=== PATIENT | female | born 1975 | race Caucasian/White ===

== ENCOUNTER 2020-02-16 09:46 | Outpatient (CLI) | payer BC, SELFPAY ==
--- NOTE | 2020-02-16 09:53 | MM_ITS ---
WS: [id number] BILATERAL DIGITAL SCREENING MAMMOGRAPHY WITH CAD CLINICAL INFORMATION: SCREENING HISTORY: Screening mammogram. No current complaints. COMPARISON: None. TECHNIQUE: Bilateral CC and MLO views. FINDINGS: Bilateral breast implants. The breasts are composed of heterogeneous fibroglandular density tissue, which can limit the detectio n of small underlying mass lesions. No suspicious mass, asymmetry, calcifications, or architectural d istortion. No evidence of malignancy. MM/[place] [id number] IMPRESSION: BI-RADS: 2-Benign FOLLOW UP: 1 Year Follow-up Recommend return to annual screening mammography.
== END 2020-02-16 09:47 | disposition home or self-care (01) ==
PROVIDERS: PCP Registered Nurse; Visit Provider Registered Nurse
DX: Z12.31 Encounter for screening mammogram for malignant neoplasm of breast (principal)
CPT/HCPCS: 77067

== ENCOUNTER 2021-03-02 11:47 | Outpatient (CLI) | payer BC, SELFPAY ==
--- NOTE | 2021-03-02 13:00 | MM_ITS ---
WS: [id number] BILATERAL SCREENING MAMMOGRAM WITH KYLIE DISPLACEMENT VIEWS. CAD PERFORMED. HISTORY: Z12.31 - Encounter for screening mammogram for malignant ... COMPARISON: 02/16/2020 Bilateral craniocaudal and mediolateral like views are performed. Kylie displacement views in CC and MLO projection also performed. Breasts composition: The breasts are extremely dense, which lowers the sensitivity of mammography. I mplants are intact. No suspicious mass or calcifications. No nipple retraction. MM/[place] [id number] IMPRESSION: BI-RADS: 2-Benign FOLLOW-UP: 1 Year Follow-up
== END 2021-03-02 11:48 | disposition home or self-care (01) ==
PROVIDERS: PCP Registered Nurse; Visit Provider Registered Nurse
DX: Z12.31 Encounter for screening mammogram for malignant neoplasm of breast (principal); Z98.82 Breast implant status
CPT/HCPCS: 77067

== ENCOUNTER → 2022-04-17 16:22 | Outpatient (BNVA) | payer BC, SELFPAY | PROVIDERS: PCP Registered Nurse; Visit Provider Registered Nurse | DX: Z01.419 Encounter for gynecological examination (general) (routine) without abnormal findings (principal) | CPT/HCPCS: 87624 ==

== ENCOUNTER → 2023-06-22 08:19 | Outpatient (BNVA) | payer BC, SELFPAY | PROVIDERS: PCP Registered Nurse; Referring Provider Dermatology; Visit Provider Nurse Practitioner | DX: M25.522 Pain in left elbow; G89.29 Other chronic pain; M70.22 Olecranon bursitis, left elbow | CPT/HCPCS: 73080 ==

== ENCOUNTER → 2023-07-16 09:11 | Outpatient (BNVA) | payer BC, SELFPAY | PROVIDERS: PCP Registered Nurse; Visit Provider Registered Nurse | DX: Z13.6 Encounter for screening for cardiovascular disorders (principal); E53.8 Deficiency of other specified B group vitamins; E55.9 Vitamin D deficiency, unspecified | CPT/HCPCS: 80053; 80061; 82306; 82607; 85025 ==

== ENCOUNTER 2023-07-20 13:29 | Outpatient (CLI) | payer BC, SELFPAY ==
--- NOTE | 2023-07-20 13:45 | MR_ITS ---
WS: [id number] EXAMINATION: MR elbow LT wo con* [id number] ORDER DATE: 07/20/2023 1:30 PM COMPARISON: None. HISTORY: Left medial elbow pain. CONTRAST: None.None. TECHNIQUE: Axial T1, axial T2 fat sat, coronal T1, coronal proton density fat sat, coronal STIR, sagi ttal proton density fat sat, and axial fat sat 3D performed. After contrast, axial T1 fat sat, coron al T1 fat sat, and sagittal T1 fat sat were performed. FINDINGS: Normal anatomic alignment. No acute fractures. Normal bone marrow signal. Radial head and neck are no rmal in appearance. No acute radial head fractures. Normal capitellum and trochlea. Distal humerus is normal in appearance. Normal epicondyles. Coronoid process is normal in appearance. Trace joint effu simona. Trace fluid and edema along the dorsal olecranon at the triceps insertion. Partially visualized distal biceps tendon inserts normally on the radial tuberosity. Common flexor tendon is normal in appearance. Small amount of fluid and edema along the medial collat eral ligament which appears intact. Common extensor tendon is normal in appearance. Normal lateral collateral and annular ligament. IMPRESSION: 1. Normal bone marrow signal. No acute fractures. 2. Radial head and neck are normal in appearance. Normal coronoid process. 3. Tiny joint effusion. 4. Small amount of fluid and edema along the medial collateral ligament suspicious for grade 1 injur y. MCL remains intact. 5. Trace fluid and edema along the dorsal olecranon at the triceps insertion suspicious for a tiny a mount of olecranon bursitis. No significant distention of the bursa. 6. No other acute findings.
== END 2023-07-20 13:30 | disposition home or self-care (01) ==
LOC: RAD 13:29
PROVIDERS: PCP Registered Nurse; Visit Provider Nurse Practitioner
DX: M25.522 Pain in left elbow (principal); G89.29 Other chronic pain; M25.422 Effusion, left elbow; R60.0 Localized edema
CPT/HCPCS: 73221

== ENCOUNTER 2023-08-20 09:41 | Outpatient (CLI) | payer BC, SELFPAY ==
--- NOTE | 2023-08-20 10:00 | MM_ITS ---
WS: [id number] BILATERAL SCREENING DIGITAL BREAST MAMMOGRAPHY WITH KYLIE DISPLACEMENT VIEWS. CAD PERFORMED. HISTORY: Z12.39 - Encounter for other screening for malignant neop... COMPARISON: 03/02/2021 Bilateral craniocaudal and mediolateral oblique views are performed with tomosynthesis and SM. Kylie displacement views in CC and MLO projection also performed. Breasts composition: The breasts are heterogeneously dense, which may obscure small masses. No suspi cious mass or calcification. Bilateral breast implants are intact. IMPRESSION: MM/[place] [id number] BI-RADS: 2-Benign FOLLOW-UP: 1 Year Follow-up
== END 2023-08-20 09:42 | disposition home or self-care (01) ==
LOC: RAD 09:41
PROVIDERS: PCP Registered Nurse; Visit Provider Registered Nurse
DX: Z12.31 Encounter for screening mammogram for malignant neoplasm of breast (principal)
CPT/HCPCS: 77063; 77067

== ENCOUNTER 2024-01-29 06:38 | Day surgery (SDC) | payer BC, SELFPAY ==
--- NOTE | 2024-01-29 06:47 | W.PM.OPSFHP ---
Same Day Surgery H&P Indication for Procedure/HPI DATE OF PROCEDURE: January 29, 2024 CHIEF COMPLAINT/INDICATIONFOR SURGICAL PROCEDURE: need for screening colonoscopy PREOP DIAGNOSIS: need for screening colonoscopy PLANNED PROCEDURE: Operation Date: 01/29/24 07:45 Proposed Procedures p Colonoscopy - 44711, Z12.11, G0121(Not Applicable) - Francesco Adams MD Medications/Allergies* Home Medications Medication Instructions Recorded Confirmed Type Centrum Silver Women 1 tab PO DAILY 01/24/24 01/29/24 History Allergies/Adverse Reactions Allergy/AdvReac Type Severity Reaction Status Date / Time No Known Allergies Allergy Verified 09/24/23 13:53 Pertinent History/Comorbid Conditions* Medical History (Updated 09/28/23 @ 10:28 by Alecia Osorio MD) Sprain of elbow, left MCL sprain - grade 1. Olecranon bursitis, left elbow Chronic pain of left elbow Surgical History (Updated 01/17/21 @ 09:51 by DILLON Plata) Hx of breast implants, bilateral Family History (Updated 11/11/19 @ 09:12 by Rafi Davies LPN) Melanoma Cancer Social History Smoking and tobacco/nicotine status: never used tobacco/nicotine Alcohol intake: never Substance/Drug Use: never Adopted: No Caregiver/support person: No Lives independently: No Household members: spouse Marital status: service: No Current occupational status: employed Sexually active: Yes Do you think of yourself as: Straight/Heterosexual Current gender identity: Female Pertinent Exam Findings alert, oriented x 3, clear to auscultation bilaterally and regular rate & rhythm Recommendations Surgery/Procedure today Coding Level of Care Code Acute Code for Chg Fwd
[2024-01-29 06:48] VITALS: BP 131/74; PULSE 83; RESP 16; TEMP 37; O2SAT 99; BMI 21.7
[2024-01-29] MEDS: sodium chloride 0.9% 1,000 ML 30 ML IV (06:53)
[2024-01-29 06:56] LABS: OR HCG Qualitative Urine Negative (Negative)
--- NOTE | 2024-01-29 07:09 | ANES.PREANE2 ---
Pre-Anesthetic Assessment Height/Weight: Height 1.6 m Weight 55.792 kg Temp Pulse Resp BP Pulse Ox O2 Del Method 98.6 F 83 16 131/74 99 Room Air 01/29/24 06:48 01/29/24 06:48 01/29/24 06:48 01/29/24 06:48 01/29/24 06:48 01/29/24 06:48 Preop Diagnosis: need for screening colonoscopy Operation Date: 01/29/24 07:45 Proposed Procedures p Colonoscopy - 59893, Z12.11, G0121(Not Applicable) - Francesco Adams MD Familial anesthetic complications: none Was Beta Krystin taken within 24 hours: N/A Was Clonidine taken within 24 hours: N/A Last intake: Intake Last Liquid Date 01/28/24 Last Liquid Time 19:00 Last Solid Date 01/27/24 Last Solid Time 18:00 Social No alcohol and No tobacco Exam alert and oriented x 3 Airway Submandibular: within normal limits Cervical ROM: within normal limits Mallampati: Class I Dentition: full History/ROS No significant complaints Anesthetic Plan Anesthesia: Anesthesia Evaluation, General and MAC Risk of > 500 ml blood loss (7ml/kg in children): No Medications/Allergies Home Medications Medication Instructions Recorded Confirmed Last Taken Type norgestimate-ethinyl estradiol 1 tab PO QDAY #84 tabs 08/02/23 01/29/24 01/29/24 Rx 0.18 mg/0.215mg/0.25mg-35 mcg(28)tablet (Tri-Sprintec (28)) Centrum Silver Women 1 tab PO DAILY 01/24/24 01/29/24 01/29/24 History Allergies Allergy/AdvReac Type Severity Reaction Status Date / Time No Known Allergies Allergy Verified 09/24/23 13:53 Current Medications Generic Name Dose Route Start Last Admin Trade Name Freq PRN Reason Stop Dose Admin Sodium Chloride 1,000 mls @ 30 mls/hr 01/29/24 06:45 01/29/24 06:53 Sodium Chloride 0.9% IV 30 mls/hr .Q24H SAVANA Administration PFSH Anesthesia Medical History Sprain of elbow, left MCL sprain - grade 1. Olecranon bursitis, left elbow Chronic pain of left elbow Surgical History Hx of breast implants, bilateral Family History Other Cancer Melanoma Social History Smoking and tobacco/nicotine status: never used tobacco/nicotine Alcohol intake: never Substance/Drug Use: never Adopted: No Caregiver/support person: No Lives independently: No Household members: spouse Marital status: service: No Current occupational status: employed Sexually active: Yes Do you think of yourself as: Straight/Heterosexual Current gender identity: Female Female Reproductive History Date of last menstrual period: 01/13/24 Data Anesthesia Cardiac Studies: No Data to Display
[2024-01-29 07:47] VITALS: BP 111/79; PULSE 85; RESP 18; TEMP 36.8; O2SAT 100
[2024-01-29 08:00] VITALS: BP 114/79; PULSE 77; RESP 18; O2SAT 99
--- NOTE | 2024-01-29 08:00 | ANE.PACU2 ---
Inpatient post-anesthesia follow up: Airway intact: Yes Vital signs: Temperature 98.2 F Pulse Rate 85 Respiratory Rate 18 Blood Pressure 111/79 Pulse Oximetry 100 Oxygen Delivery Me thod Room Air Oxygen Flow Rate Fraction of Inspir ed Oxygen Hydration adequate: Yes Nausea and vomiting: No Pain level: 1 Mental status: Baseline
[2024-01-29 08:10] VITALS: BP 110/70; PULSE 70; RESP 18; O2SAT 99
== END 2024-01-29 08:17 | disposition home or self-care (01) ==
PROVIDERS: Anesthesiology; PCP Registered Nurse; Visit Provider Surgery
PROC: 0DJD8ZZ Inspection of Lower Intestinal Tract, Via Natural or Artificial Opening Endoscopic (ICD-10-PCS; CPT 45378; principal; 2024-01-29 07:45)
DX: Z12.11 Encounter for screening for malignant neoplasm of colon (principal)
CPT/HCPCS: 45380; 81025; 88305; J2704; J7030

== ENCOUNTER → 2024-07-21 08:42 | Outpatient (BNVA) | payer BC, SELFPAY | PROVIDERS: PCP Registered Nurse; Visit Provider Registered Nurse | DX: Z00.00 Encounter for general adult medical examination without abnormal findings (principal); Z13.6 Encounter for screening for cardiovascular disorders; Z13.1 Encounter for screening for diabetes mellitus | CPT/HCPCS: 80053; 80061; 83036; 85025 ==

== ENCOUNTER 2024-08-21 08:21 | Outpatient (CLI) | payer BC, SELFPAY ==
--- NOTE | 2024-08-21 08:20 | MM_ITS ---
WS: [id number] BILATERAL SCREENING DIGITAL BREAST MAMMOGRAPHY WITH KYLIE DISPLACEMENT VIEWS. CAD PERFORMED. HISTORY: Z12.31 - Encounter for screening mammogram for malignant ... COMPARISON: 08/20/2023, 03/02/2021 Bilateral craniocaudal and mediolateral oblique views are performed with tomosynthesis and SM. Kylie displacement views in CC and MLO projection also performed. Breasts composition: The breasts are extremely dense, which lowers the sensitivity of mammography. Implants are intact. No suspicious grouping of calcification, distortion or mass within either breast. MM/MM [facility] tomosynthesis [id number] IMPRESSION: BI-RADS: 2 - Benign FOLLOW-UP: 1 Year Follow-up
== END 2024-08-21 08:22 | disposition home or self-care (01) ==
PROVIDERS: PCP Registered Nurse; Visit Provider Registered Nurse
DX: Z12.31 Encounter for screening mammogram for malignant neoplasm of breast (principal); R92.343 Mammographic extreme density, bilateral breasts; Z98.82 Breast implant status
CPT/HCPCS: 77063; 77067